=== PATIENT | male | born 1970 | race Caucasian/White ===

== ENCOUNTER → 2021-07-31 | Outpatient (CLI) | payer OTHER ==
[~2021-07-31] MED LIST: AMOXICILLIN500 MG PO; COLACE 100MG C100 MG PO; IBUPROFEN800 MG PO; LIPITOR TAB 1010 MG PO; NORCO 7.5-3251 EACH PO; [UNRECOGNIZED DRUG - OTHER] PO
== END ==
LOC: KOH-I 11:06
DX: R07.81 Pleurodynia (principal)
CPT/HCPCS: 71101